=== PATIENT | female | born 1995 | race Caucasian/White ===

== ENCOUNTER 2019-10-09 15:09 | Emergency (ER) | payer MEDICAID, SELFPAY ==
[~2019-10-09] VITALS: Ht 157.5 cm; Wt 61.2 kg
[2019-10-09 16:21] VITALS: BP 111/68; Ht 157.5 cm; Wt 61.2 kg
== END 2019-10-09 16:23 | disposition home or self-care (01) ==
LOC: ED 15:09
DX: J18.9 Pneumonia, unspecified organism (principal)
CPT/HCPCS: U0003-CS